=== PATIENT | female | born 1985 | race Caucasian/White ===

== ENCOUNTER → 2016-12-11 | Outpatient (REF) ==
[~2016-12-11] MED LIST: AMOXICILLIN 50500 MG PO; BCP TD; PRILOSEC40 MG PO; VALTREX
== END ==
LOC: WSOH 11:30
DX: Z02.89 Encounter for other administrative examinations (principal)

== ENCOUNTER → 2021-10-26 | Outpatient (CLI) | payer OTHER ==
[~2021-10-26] MED LIST changes: +MIRENA52 MG IY; +PROTONIX 40MG T40 MG PO
== END ==
LOC: COL.RAD 07:19
DX: E80.6 Other disorders of bilirubin metabolism (principal); K76.89 Other specified diseases of liver; R13.10 Dysphagia, unspecified

== ENCOUNTER 2021-11-02 07:00 | Day surgery (SDC) | payer OTHER ==
[~2021-11-02] VITALS: Ht 170.2 cm; Wt 83.5 kg
[~2021-11-02 07:00] MED LIST changes: -MIRENA52 MG IY; -PROTONIX 40MG T40 MG PO
[2021-11-02 07:29] VITALS: BP 126/96; PULSE 87; TEMP 97.7
[2021-11-02] MEDS ORDERED: PROTONIX 40MG T40 MG PO (07:32)
[2021-11-02] MEDS ORDERED: MIRENA52 MG IY (07:33)
[2021-11-02 08:25] VITALS: BP 119/83; PULSE 91; TEMP 97.8
[2021-11-02 08:40] VITALS: BP 129/95; PULSE 90
[2021-11-02 08:55] VITALS: BP 126/92; PULSE 86
--- NOTE | 2021-11-02 09:15 | NUR ---
0825 PT RETURNED TO [facility] VIA CART. TRANSFERRED TO CHAIR WITH RN ASSIST. ALERT AND ORIENTED. MONITORS ATTACHED, INTERVALS AND ALARMS SET. VSS. PT DENIES PAIN OR NAUSEA. FOOD AND DRINK PROVIDED. CALL LIGHT IN REACH. 0840 VSS. PT DENIES DISCOMFORT. TOLERATING FOOD AND DRINK WELL. PT CALL FOR RIDE HOME. 0855 VSS. PT DENIES DISCOMFORT. REVIEWED DISCHARGE INSTRUCTIONS AND EDUCATION MATERIAL, ANSWERED ALL QUESTIONS. IV REMOVED WITHOUT COMPLICATIONS. PT ALLOWED TO DRESS. 0915 TRANSFERRED PT VIA WHEELCHAIR TO PERSONAL VEHICLE TO BE DRIVEN HOME BY .
== END 2021-11-02 09:15 | disposition home or self-care (01) ==
LOC: SDCO 07:00
DX: K21.00 Gastro-esophageal reflux disease with esophagitis, without bleeding (principal); K29.50 Unspecified chronic gastritis without bleeding; G89.29 Other chronic pain; E80.6 Other disorders of bilirubin metabolism; T63.441A Toxic effect of venom of bees, accidental (unintentional), initial encounter; E28.2 Polycystic ovarian syndrome; B00.9 Herpesviral infection, unspecified; Z79.899 Other long term (current) drug therapy
CPT/HCPCS: J2704; J7120